=== PATIENT | male | born 1995 | race African-American/Black ===

== ENCOUNTER 2021-08-29 05:19 | Emergency (ER) | payer SELFPAY ==
[~2021-08-29] VITALS: Ht 177.8 cm; Wt 79.4 kg
--- NOTE | 2021-08-29 05:19 | NUR ---
Pt bib RA, [place], paramedics state that he was observed smokeing meth and was hearing voices saying that he is in danger and that ppl want to hurt him. Pt has a very grimmy and desheveled appearance. Pt was definitly exhibiting very odd and pathological behavior that indicated presence of severe mental illness. VSS, PE WNL. No s/sx of distress noted.
--- NOTE | 2021-08-29 05:20 | NUR ---
Pt seems very dehydrated and kept asking for water. Large pitcher of ice water given and was consumed 100%. Pt then asked to be let out to smoke a cigarette so that he can calm down. When chargemaster specialist asked, he refused and said he would not allow him to go smoke, hence he decided to leave AMA. AMA form signed and pt ambulated oout of dept with steady gait. No complaints of pain, sob, n/v, dizziness or discomfort.
[2021-08-29 06:43] VITALS: BP 125/85
== END 2021-08-29 06:20 | disposition left against medical advice (07) ==
LOC: ER 05:26
DX: F29 Unspecified psychosis not due to a substance or known physiological condition (principal); Z53.21 Procedure and treatment not carried out due to patient leaving prior to being seen by health care provider; Z59.00 Homelessness unspecified
CPT/HCPCS: A4663